=== PATIENT | male | born 1970 | race Hispanic/Latino ===

== ENCOUNTER 2019-05-03 20:58 | Inpatient (IN) | payer SELFPAY ==
[~2019-05-03] VITALS: Ht 165.1 cm; Wt 69.8 kg
[~2019-05-03 20:58] MED LIST: ETOMIDATE 2 MG/ML 10 ML VIAL IVP ONE; SUCCINYLCHOLINE CHLORIDE 20 MG/ML 10 ML VIAL IVP ONE
[2019-05-03] MEDS ORDERED: IOHEXOL-350 75 ML VIAL IV ONE (21:09)
[2019-05-03] MEDS ORDERED: LORAZEPAM 2 MG/ML 1 ML VIAL ONE (21:27)
[2019-05-03] MEDS ORDERED: PROPOFOL 1000 MG/100 ML 100 ML IV ONE (21:30)
[2019-05-03] MEDS ORDERED: HYDRALAZINE HCL 20 MG/ML VIAL ONE ×2 (21:31→21:41)
[2019-05-03 21:41] LABS: BASOPHILS % (AUTO) 0.5 % (0.0-5.0); EOSINOPHILS % (AUTO) 3.5 % (0.0-8.0); HEMATOCRIT 47.4 % (42-54); LYMPHOCYTES % (AUTO) 41.4 % (21.0-51.0); MEAN CORPUSCULAR HEMOGLOBIN 32.6 pg (27.0-33.0); MEAN CORPUSCULAR HGB CONC 32.6 g/dL (32.0-36.0); MONOCYTES % (AUTO) 8.2 % (3.0-13.0); NEUTROPHILS % (AUTO) 46.4 % (40.0-77.0); PLATELET COUNT (AUTO) 253 K/uL (130-400); RED BLOOD CELL COUNT(AUTO) 4.74 MIL/uL (4.50-6.20); RED CELL DISTRIBUTION WIDTH 13.5 % (11.0-15.5); WHITE BLOOD COUNT (AUTO) 16.6 K/uL (4.8-10.8)
[2019-05-03] MEDS ORDERED: FENTANYL CITRATE PF 50 MCG/1 ML 2ML VIAL ONE ×3 (21:42→23:44)
[2019-05-03] MEDS ORDERED: LEVETIRACETAM 500 MG/5 ML SD VIAL IV ONE (21:48)
[2019-05-03] MEDS ORDERED: DEXAMETHASONE SOD PHOSPHATE 10MG/ML 1ML VIAL ONE (21:48)
[2019-05-03] MEDS ORDERED: SODIUM CHLORIDE 0.9% 100 ML IV ONE (21:52)
[2019-05-03 21:54] LABS: INR 0.95 (0.85-1.15); PARTIAL THROMBOPLASTIN TIME 26.4 SEC (26.3-35.5)
[2019-05-03 22:01] LABS: CREATININE 1.4 mg/dL (0.5-1.5); POTASSIUM 4.3 mmol/L (3.5-5.1)
[2019-05-03 22:05] LABS: ALBUMIN 3.8 g/dL (3.5-5.0); BILIRUBIN,TOTAL 0.3 mg/dL (0.2-1.0); TOTAL PROTEIN, SERUM 7.9 g/dL (6.0-8.3)
[2019-05-03 22:35] LABS: APPEARANCE,URINE Clear (CLEAR); BILIRUBIN,URINE Negative (NEGATIVE); COLOR,URINE Yellow (YELLOW); GLUCOSE, URINE (UA) Negative (NEGATIVE); KETONES,URINE Negative (NEGATIVE); LEUKOCYTE ESTERASE ,URINE Negative (NEGATIVE); NITRATE,URINE Negative (NEGATIVE); OCCULT BLOOD,URINE Negative (NEGATIVE); PROTEIN,URINE Negative (NEGATIVE); UROBILINOGEN,URINE 0.2 mg/dL (0.2-1.0)
[2019-05-03 22:41] LABS: AMPHET/METH SCREEN,URINE NEGATIVE (NEGATIVE); BARBITURATE SCREEN, URINE NEGATIVE (NEGATIVE); BENZODIAZEPINES SCREEN,URINE NEGATIVE (NEGATIVE); CANNABINOID SCREEN,URINE NEGATIVE (NEGATIVE); COCAINE SCREEN,URINE NEGATIVE (NEGATIVE); OPIATE SCREEN,URINE NEGATIVE (NEGATIVE); PHENCYCLIDINE SCREEN,URINE NEGATIVE (NEGATIVE)
[2019-05-03] MEDS ORDERED: HYDRALAZINE HCL 20 MG/ML VIAL IV PRN (23:15)
[2019-05-03] MEDS ORDERED: ONDANSETRON HCL 4 MG/2 ML VIAL IVP PRN (23:15)
[2019-05-04] VITALS (23 sets, daily range): BP systolic 96–133; BP diastolic 56–83
[2019-05-04] MEDS ORDERED: GADODIAMIDE 10 MMOL/20 ML VIAL IV ONE (00:18)
[2019-05-04] MEDS ORDERED: PROPOFOL 1000 MG/100 ML 100 ML IV ONE ×2 (00:49→05:00)
[2019-05-04] MEDS: IPRATROPIUM/ALBUTEROL SULFATE 3 ML SOLUTION IH SCH ×4 (01:03→21:01)
[2019-05-04] MEDS: SODIUM CHLORIDE 0.9% 1000ML 1,000 ML IV SCH ×3 (01:05→21:26)
[2019-05-04 02:09] LABS: ABG BASE EXCESS -1.2 mmol/L (-2.0-3.0); ABG HCO3 24.1 mmol/L (21.0-28.0); ABG PCO2 43 mmHg (35-48)
[2019-05-04 04:03] LABS: BASOPHILS % (AUTO) 0.2 % (0.0-5.0); EOSINOPHILS % (AUTO) 0.2 % (0.0-8.0); HEMATOCRIT 41.3 % (42-54); LYMPHOCYTES % (AUTO) 6.6 % (21.0-51.0); MEAN CORPUSCULAR HEMOGLOBIN 33.1 pg (27.0-33.0); MEAN CORPUSCULAR HGB CONC 34.4 g/dL (32.0-36.0); MEAN CORPUSCULAR VOLUME 96.2 fL (79-99); NUCLEATED RED BLOOD CELLS 0.1 % (0.0-0.19); PLATELET COUNT (AUTO) 208 K/uL (130-400); RED BLOOD CELL COUNT(AUTO) 4.29 MIL/uL (4.50-6.20); WHITE BLOOD COUNT (AUTO) 14.9 K/uL (4.8-10.8)
[2019-05-04 04:10] LABS: CREATININE 1.1 mg/dL (0.5-1.5); POTASSIUM 4.3 mmol/L (3.5-5.1)
[2019-05-04] MEDS ORDERED: PROPOFOL 1000 MG/100 ML IV PRN (05:00)
[2019-05-04] MEDS: LEVETIRACETAM 1,000 MG in SODIUM CHLORIDE 0.9% 100 ML IV SCH ×2 (08:58→21:26)
[2019-05-04] MEDS: FAMOTIDINE/PF 20 MG/2 ML VIAL IV SCH ×2 (08:59→21:26)
[2019-05-04] MEDS ORDERED: COMPOUND IV MISC 1 EACH IVSOLN MISC PRN (09:00)
[2019-05-04] MEDS: ENOXAPARIN SODIUM 40 MG/0.4 ML SYRINGE SQ SCH (09:00)
[2019-05-04 11:42] LABS: ABG BASE EXCESS -2.8 mmol/L (-2.0-3.0); ABG HCO3 21.3 mmol/L (21.0-28.0); ABG OXYGEN SATURATION 96.3 % (95.0-99.0); ABG PCO2 35 mmHg (35-48)
--- NOTE | 2019-05-04 12:10 | NUR ---
Transfer: Placed a call to [facility] Transfer center spoke with Astrid health sciences program coordinator. 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 [place] Yo spoke with Dr Damon and he has accepted patient at [facility]. Pertinent information provided to Astrid. Awaiting call back. Patient and family aware
[2019-05-04] MEDS: DEXAMETHASONE SOD PHOSPHATE 4 MG/ML 1ML VIAL IVP SCH ×2 (17:18→21:28)
--- NOTE | 2019-05-04 18:05 | NUR ---
Transfer Recalled [facility] spoke to [facility], they are at capacity, no beds to try again tomorrow. primary Nurse informed
--- NOTE | 2019-05-04 18:15 | NUR ---
JAKE PLAN PATIENT INTUBATED NOW EXTUBATED. DR. HUYNH IN THE ROOM WITH PATIENT AND FAMILY. [facility] WILL CONTINUE TO FOLLOW. AT THIS TIME DR. HUYNH IS TRYING TO TRANSFER PATIENT TO [facility] FOR PROCEDURE. Addendum: 05/04/19 at 1818 by KOFI BIRMINGHAM RN CM Amended: Links added.
[2019-05-05] VITALS: BP 115/59
[2019-05-05] MEDS: IPRATROPIUM/ALBUTEROL SULFATE 3 ML SOLUTION IH SCH ×3 (01:30→11:32)
[2019-05-05 03:43] LABS: BASOPHILS % (AUTO) 0.1 % (0.0-5.0); HEMATOCRIT 37.7 % (42-54); LYMPHOCYTES % (AUTO) 6.3 % (21.0-51.0); MEAN CORPUSCULAR HEMOGLOBIN 32.8 pg (27.0-33.0); MEAN CORPUSCULAR HGB CONC 34.4 g/dL (32.0-36.0); MEAN CORPUSCULAR VOLUME 95.5 fL (79-99); MONOCYTES % (AUTO) 2.8 % (3.0-13.0); NEUTROPHILS % (AUTO) 90.8 % (40.0-77.0); PLATELET COUNT (AUTO) 189 K/uL (130-400); RED BLOOD CELL COUNT(AUTO) 3.95 MIL/uL (4.50-6.20); RED CELL DISTRIBUTION WIDTH 13.1 % (11.0-15.5)
[2019-05-05 03:49] LABS: CREATININE 0.9 mg/dL (0.5-1.5); POTASSIUM 4.2 mmol/L (3.5-5.1)
[2019-05-05 04:00] VITALS: BP 102/62
[2019-05-05] MEDS: DEXAMETHASONE SOD PHOSPHATE 4 MG/ML 1ML VIAL IVP SCH ×3 (04:34→15:35)
[2019-05-05 08:00] VITALS: BP 116/65
[2019-05-05] MEDS: LEVETIRACETAM 1,000 MG in SODIUM CHLORIDE 0.9% 100 ML IV SCH (08:47)
[2019-05-05] MEDS: FAMOTIDINE/PF 20 MG/2 ML VIAL IV SCH (08:47)
[2019-05-05] MEDS: ENOXAPARIN SODIUM 40 MG/0.4 ML SYRINGE SQ SCH (08:47)
[2019-05-05] MEDS: SODIUM CHLORIDE 0.9% 1000ML 1,000 ML IV SCH ×2 (10:36→15:02)
--- NOTE | 2019-05-05 11:29 | NUR ---
Transfer Placed a call to [facility] transfer center following up on the bed availability, spoke with Shanna and she stated that they are still at capacity no beds available. Primary nurse and Dr. Yo informed
--- NOTE | 2019-05-05 11:35 | NUR ---
Transfer Placed a call to Dr. Yo informing him of no beds at [facility], he said he will call me back to plan how to proceed.
[2019-05-05 11:50] VITALS: BP 130/66
--- NOTE | 2019-05-05 11:58 | NUR ---
CHART CHECK. Pt IS A 48 YEAR OLD MAN ADMITTED SECONDARY TO [facility]. UPON ARRIVAL, Pt WITH DIFFICULTY SPEAKING. Pt S/P EXTUBATION 05/04/2019. Pt AAOX3 AND COMMUNICATING AT THIS TIME. Pt TOLERATING CURRENT REGULAR TEXTURE DIET. ESCALATOR OPERATOR SPOKE TO NURSE LAYLA/ NO CONCERNS AT THIS TIME. Addendum: 05/05/19 at 1204 by JOE LIMON, [facility] Amended: Links added.
--- NOTE | 2019-05-05 12:10 | NUR ---
REPORT GIVEN TO LUPE OKEEFE, TRANSFERRED TO ROOM 418 VIA BED.
[2019-05-05 13:17] VITALS: BP 116/72
--- NOTE | 2019-05-05 13:50 | NUR ---
Received a call from Dr. Yo's nurse Daysi stating that the patient is stable can be discharged home to follow up with Dr. Damon as outpatient. From his standpoint patient can be discharged home if ok with hospitalist
--- NOTE | 2019-05-05 14:05 | NUR ---
Spoke with Dr. Marshall regarding neurosurgeon clearing patient for discharge home if ok with him to follow up with Dr. Nelson Marshall stated that it is ok with him to discharge patient and follow up with Dr. Damon, primary nurse informed. Patient and informed
[2019-05-05] MEDS ORDERED: DEXA4TAB PO (16:24)
[2019-05-05] MEDS ORDERED: LEVE1000 PO (16:24)
== END 2019-05-05 17:14 | disposition home or self-care (01) | DRG 100 ==
LOC: EDH 20:58 → EDHIP 20:59 → 2CH 23:23 → 4CH 05-05 12:07
PROVIDERS: ADMIT Internal Medicine; ATTEND Internal Medicine
DX: G40.89 Other seizures (principal); G93.6 Cerebral edema; R47.01 Aphasia; I10 Essential (primary) hypertension; F17.210 Nicotine dependence, cigarettes, uncomplicated; Z88.0 Allergy status to penicillin
CPT/HCPCS: 31500; 36415; 36600; 70450; 70496; 70498; 70553; 71045; 80048; 80053; 80305; 81003; 82550; 82803; 82948; 83721; 83930; 83935; 84484; 85025; 85610; 85730; 93005; 94002; 94003; 94640; 94664; 99291; 99292; A9579; G0378; J0330; J0360; J1100; J1650; J1953; J2060; J2704; J3010; J3490; J7030; Q9967

== ENCOUNTER 2019-06-27 16:40 | Emergency (ER) | payer SELFPAY ==
[~2019-06-27 16:40] MED LIST changes: +DEXA4TAB PO; -ETOMIDATE 2 MG/ML 10 ML VIAL IVP ONE; +LEVE1000 PO; -SUCCINYLCHOLINE CHLORIDE 20 MG/ML 10 ML VIAL IVP ONE
== END 2019-06-27 17:10 | disposition left against medical advice (07) ==
LOC: EDH 16:40
DX: C71.9 Malignant neoplasm of brain, unspecified (principal); K11.7 Disturbances of salivary secretion; Z88.0 Allergy status to penicillin
CPT/HCPCS: 99281

== ENCOUNTER → 2022-01-12 | Outpatient (CLI) | payer MEDICARE | END | disposition home or self-care (01) | LOC: SHCH 07:47 | PROVIDERS: ATTEND Internal Medicine | DX: I25.3 Aneurysm of heart (principal); E78.5 Hyperlipidemia, unspecified; D49.6 Neoplasm of unspecified behavior of brain; R47.01 Aphasia | CPT/HCPCS: 93306 ==

== ENCOUNTER → 2022-02-03 | Outpatient (CLI) | payer MEDICARE ==
[~2022-02-03] MED LIST changes: +REGADENOSON 0.4 MG/5 ML PF SYG IVP SCH
== END | disposition home or self-care (01) ==
LOC: SHCH 07:33
PROVIDERS: ATTEND Internal Medicine
DX: R07.9 Chest pain, unspecified (principal); R06.09 Other forms of dyspnea
CPT/HCPCS: 78452; 96374; 93017; J2785; A9500 ×2

== ENCOUNTER → 2023-03-03 | Outpatient (CLI) | payer MEDICARE ==
[~2023-03-03] MED LIST changes: -REGADENOSON 0.4 MG/5 ML PF SYG IVP SCH
== END | disposition home or self-care (01) ==
LOC: SHCH 09:07
PROVIDERS: ATTEND Internal Medicine
DX: I70.0 Atherosclerosis of aorta (principal); I63.9 Cerebral infarction, unspecified
CPT/HCPCS: 93978

== ENCOUNTER → 2024-04-07 | Outpatient (CLI) | payer MEDICARE | END | disposition home or self-care (01) | LOC: SHCH 13:18 | PROVIDERS: ATTEND Internal Medicine | DX: I73.9 Peripheral vascular disease, unspecified (principal) | CPT/HCPCS: 93925 ==